=== PATIENT | female | born 1990 | race Caucasian/White ===

== ENCOUNTER → 2025-01-30 | Outpatient (CLI) | payer OTHER ==
[2025-01-30 18:47] LABS: BASO # 0.1 10^3/uL (0.0-0.2); BASO % 0.7 % (0.0-1.0); EOS # 0.2 10^3/uL (0.0-0.5); EOS % 2.1 % (0.0-3.0); LYMPH # 2.3 10^3/uL (1.5-5.0); LYMPH % 26.2 % (24.0-44.0); MONO # 0.5 10^3/uL (0.0-0.8); MONO % 6.1 % (2.0-8.0); NEUTROPHILS # 5.7 10^3/uL (1.5-8.5); NEUTROPHILS % 64.4 % (36.0-66.0); PLATELET COUNT, AUTOMATED 217 10^3/uL (150-450)
[2025-01-30 19:08] LABS: ESTIMATED AVERAGE GLUCOSE 100.0 MG/DL (60-110)
[2025-01-30 19:22] LABS: ALT/SGPT 19 U/L (7.0-40); AST/SGOT 22 U/L (<34); CALCIUM LEVEL 9.2 MG/DL (8.5-10.1); CARBON DIOXIDE LEVEL 28 MMOL/L (20-31); CHLORIDE LEVEL 102 MMOL/L (98-107); CREATININE FOR GFR 0.86 MG/DL (0.55-1.30); GLOMERULAR FILTRATION RATE > 90.0 (>60); POTASSIUM SERUM 4.1 MMOL/L (3.5-5.1); SODIUM LEVEL 139 MMOL/L (136-145)
== END ==
LOC: M LAB 16:59
PROVIDERS: ATTEND Thoracic Surgery (Cardiothoracic Vascular Surgery)
DX: Z01.818 Encounter for other preprocedural examination (principal)

== ENCOUNTER 2025-02-10 18:45 | Emergency (ER) | payer OTHER ==
[~2025-02-10] VITALS: Ht 154.9 cm; Wt 102.9 kg
[2025-02-10 19:07] LABS: BASO # 0.0 10^3/uL (0.0-0.2); BASO % 0.4 % (0.0-1.0); EOS # 0.2 10^3/uL (0.0-0.5); EOS % 2.0 % (0.0-3.0); LYMPH # 1.5 10^3/uL (1.5-5.0); LYMPH % 17.8 % (24.0-44.0); MONO # 0.7 10^3/uL (0.0-0.8); MONO % 7.8 % (2.0-8.0); NEUTROPHILS # 6.0 10^3/uL (1.5-8.5); NEUTROPHILS % 71.4 % (36.0-66.0); PLATELET COUNT, AUTOMATED 257 10^3/uL (150-450)
[2025-02-10] MEDS ORDERED: LEVO88TA3 (19:08)
[2025-02-10 19:24] LABS: INR 1.96
[2025-02-10] MEDS: dilTIAZem 25 MG/5 ML VIAL IV STA ×2 (19:35→20:27)
[2025-02-10 19:40] LABS: CALCIUM LEVEL 8.5 MG/DL (8.5-10.1); CARBON DIOXIDE LEVEL 26 MMOL/L (20-31); CHLORIDE LEVEL 103 MMOL/L (98-107); CREATININE FOR GFR 0.85 MG/DL (0.55-1.30); GLOMERULAR FILTRATION RATE > 90.0 (>60); MAGNESIUM LEVEL 2.1 MG/DL (1.8-2.4); POTASSIUM SERUM 3.8 MMOL/L (3.5-5.1); SODIUM LEVEL 140 MMOL/L (136-145)
[2025-02-10 19:43] LABS: FREE T4 1.05 NG/DL (0.89-1.76)
[2025-02-10] MEDS ORDERED: TOPR50TA PO (21:45)
[2025-02-10] MEDS: METOPROLOL TART 25 MG TABLET PO ONE (21:56)
[2025-02-10] MEDS: METOPROLOL 5 MG/5 ML VIAL IV PRN (23:03)
[2025-02-10 23:46] VITALS: BP 125/76
[2025-02-11 02:01] VITALS: O2SAT 98
[2025-02-11 02:15] VITALS: BP 111/56; TEMP 98.1
== END 2025-02-11 02:25 | disposition short-term general hospital (02) ==
LOC: M ED 18:45 → EDBD 18:45 → M ED 02-11 02:25
DX: I48.91 Unspecified atrial fibrillation (principal); I45.10 Unspecified right bundle-branch block; I44.5 Left posterior fascicular block; I45.2 Bifascicular block; Z79.899 Other long term (current) drug therapy; Z95.2 Presence of prosthetic heart valve
CPT/HCPCS: 71045; 80048; 83735; 84439; 84443; 85025; 85610; 93005; 93041; 94760; 96374; 96375; 99285; J0616; J1163

== ENCOUNTER 2025-03-04 08:09 | Emergency (ER) | payer OTHER ==
[~2025-03-04] VITALS: Ht 160 cm; Wt 95.5 kg
[~2025-03-04 08:09] MED LIST: LEVO88TA3; TOPR50TA PO
[2025-03-04] MEDS ORDERED: METO1TAB7 PO (08:22)
[2025-03-04] MEDS ORDERED: WARF4TAB51 PO (08:22)
[2025-03-04] MEDS ORDERED: FOLI1TAB11 PO (08:22)
[2025-03-04] MEDS ORDERED: ENOX100I3 SUBQ (08:22)
[2025-03-04] MEDS ORDERED: VITA500T9 PO (08:22)
[2025-03-04] MEDS ORDERED: FERR325T19 PO (08:23)
[2025-03-04 09:14] LABS: BASO # 0.1 10^3/uL (0.0-0.2); BASO % 0.7 % (0.0-1.0); EOS # 0.3 10^3/uL (0.0-0.5); EOS % 3.0 % (0.0-3.0); LYMPH # 1.6 10^3/uL (1.5-5.0); LYMPH % 16.8 % (24.0-44.0); MONO # 0.5 10^3/uL (0.0-0.8); MONO % 5.1 % (2.0-8.0); NEUTROPHILS # 7.1 10^3/uL (1.5-8.5); NEUTROPHILS % 74.1 % (36.0-66.0); PLATELET COUNT, AUTOMATED 312 10^3/uL (150-450)
[2025-03-04 09:27] LABS: INR 3.23
[2025-03-04 09:37] LABS: CK-MB VALUE MASS 1.1 NG/ML (<3.6)
[2025-03-04 09:39] LABS: ALT/SGPT 38 U/L (7.0-40); AST/SGOT 38 U/L (<34); CALCIUM LEVEL 9.3 MG/DL (8.5-10.1); CARBON DIOXIDE LEVEL 23 MMOL/L (20-31); CHLORIDE LEVEL 105 MMOL/L (98-107); CREATININE FOR GFR 0.73 MG/DL (0.55-1.30); GLOMERULAR FILTRATION RATE > 90.0 (>60); HCG, SERUM QUALITATIVE NEGATIVE (NEGATIVE); POTASSIUM SERUM 4.4 MMOL/L (3.5-5.1); SODIUM LEVEL 141 MMOL/L (136-145)
[2025-03-04 09:41] LABS: C REACTIVE PROTEIN QUANTITATIV 7.43 MG/DL (<1.0)
[2025-03-04 09:42] LABS: FREE T4 1.18 NG/DL (0.89-1.76)
[2025-03-04 09:45] LABS: CPK CREATINE PHOSPHOKINASE 61 U/L (34-145); MB/CK RELATIVE INDEX 1.80 (< OR =4)
[2025-03-04] MEDS ORDERED: ISOVUE-370 76% 100 ML VIAL As Ordered ONE (10:12)
[2025-03-04] MEDS ORDERED: LEVO88TA3 PO (10:35)
[2025-03-04] MEDS ORDERED: THERTAB52 PO (10:35)
[2025-03-04] MEDS ORDERED: HOME MED LIST COMPLETE! XX SCH (10:35)
[2025-03-04] MEDS: KETOROLAC 30 MG/ML 1 ML VIAL IV ONE (11:30)
[2025-03-04] MEDS ORDERED: COLC0.6T53 PO (13:37)
[2025-03-04 15:26] VITALS: BP 121/71; TEMP 99.1; O2SAT 99
== END 2025-03-04 15:28 | disposition home or self-care (01) ==
LOC: M ED 08:09
DX: I97.0 Postcardiotomy syndrome (principal); J90 Pleural effusion, not elsewhere classified; I45.10 Unspecified right bundle-branch block; I44.7 Left bundle-branch block, unspecified; I45.2 Bifascicular block; I45.81 Long QT syndrome; F41.9 Anxiety disorder, unspecified; F32.A Depression, unspecified; Z79.899 Other long term (current) drug therapy; Z95.2 Presence of prosthetic heart valve
CPT/HCPCS: 36415; 71045; 71275; 80048; 80076; 82550; 82553; 83690; 84439; 84443; 84484; 84703; 85025; 85610; 85652; 85730; 86140; 87486; 87581; 87633; 87798; 93005; 93041; 93306; 94760; 99285; Q9967